=== PATIENT | female | born 1995 | race Caucasian/White ===

== ENCOUNTER 2018-12-08 18:36 | Inpatient (IN) | payer OTHER ==
[2018-12-08 19:00] LABS: ADD MAN DIFF? NO
[2018-12-08] MEDS ORDERED: METHYLERGONOVINE 0.2 MG INJ IM ×2 (19:00→19:30)
[2018-12-08] MEDS ORDERED: BUTORPHANOL 2 MG INJ IV ×2 (19:00→19:30)
[2018-12-08] MEDS ORDERED: OXYTOCIN 30 UNITS/LR 500 ML IV ×4 (19:00→19:30)
[2018-12-08] MEDS ORDERED: LIDOCAINE 1% (MPF) 30 ML INJ INJ (19:00)
[2018-12-08] MEDS ORDERED: MISOPROSTOL 200 MCG TAB PR ×2 (19:00→19:30)
[2018-12-08] MEDS ORDERED: CARBOPROST 250 MCG INJ IM ×2 (19:00→19:30)
[2018-12-08] MEDS ORDERED: IBUPROFEN 600 MG TAB PO (19:00)
[2018-12-08 19:01] LABS: ABNORMAL IP MESSAGE 1; BASOPHIL # 0.1 10^3/ul (0.0-0.1); BASOPHILS % 0.4 % (0.0-2.0); EOSINOPHILS % 0.3 % (0.0-7.0); HEMATOCRIT 35.7 % (37.0-47.0); HEMOGLOBIN 11.8 g/dl (12.0-16.0); LYMPHOCYTES # 3.3 10^3/ul (0.8-2.9); LYMPHOCYTES % 26.6 % (15.0-51.0); MEAN CORPUSCULAR HGB CONC 33.1 g/dl (32.0-37.0); MEAN CORPUSCULAR VOLUME 84.8 fl (82.0-101.0); MEAN PLATELET VOLUME 13.5 fl (7.4-10.4); MONOCYTE # 0.7 10^3/ul (0.3-0.9); MONOCYTES % 5.8 % (0.0-11.0); NEUTROPHIL # 8.3 10^3/ul (1.6-7.5); NEUTROPHILS % 66.6 % (39.0-77.0); PLATELET COUNT 193 10^3/UL (140-415); RED BLOOD COUNT 4.21 10^6/ul (4.20-5.40); RED CELL DISTRIBUTION WIDTH 14.1 % (11.5-14.5)
[2018-12-08 19:01] LABS: WHITE BLOOD COUNT 12.5 10^3/ul (4.8-10.8)
[2018-12-08] MEDS: LACTATED RINGER'S 1,000 ML IV ×3 (19:04→19:42)
[2018-12-08 19:16] LABS: POSITIVE DIFF @See below
[2018-12-08 19:22] LABS: PROTIME 11.2 Sec (11.9-14.9); PT RATIO 0.9
[2018-12-08 19:23] LABS: PARTIAL THROMBOPLASTIN TIME 25.6 Sec (23.0-35.0)
[2018-12-08] MEDS ORDERED: ROPIVACAINE 0.2% 100 ML (19:45)
[2018-12-08 19:56] LABS: HEPATITIS B SURFACE ANTIGEN NEGATIVE (NEGATIVE)
[2018-12-08] MEDS ORDERED: ROPIVACAINE 0.2% 100ML BAG EPI (20:30)
[2018-12-08] MEDS ORDERED: NALOXONE (0.4 MG/ML) INJ IV (20:30)
[2018-12-08] MEDS: MINERAL OIL LIGHT 10 ML VIAL TOP (23:40)
[2018-12-09] MEDS: OXYTOCIN 30 UNITS/LR 500 ML IV ×3 (00:07→04:14)
[2018-12-09] MEDS: LIDOCAINE 1% (MPF) 30 ML INJ INJ (00:10)
[2018-12-09] MEDS ORDERED: OXYCODONE/ASPIRIN (4.88/325) TAB PO (00:30)
[2018-12-09] MEDS ORDERED: METHYLERGONOVINE 0.2 MG INJ IM (00:30)
[2018-12-09] MEDS ORDERED: MISOPROSTOL 200 MCG TAB PR (00:30)
[2018-12-09] MEDS ORDERED: CARBOPROST 250 MCG INJ IM (00:30)
[2018-12-09] MEDS ORDERED: ONDANSETRON 4 MG INJ IV (00:30)
[2018-12-09] MEDS ORDERED: NACL 0.9% 3 ML SYG IV (00:30)
[2018-12-09] MEDS ORDERED: DIPHENHYDRAMINE 25 MG CAP PO (00:30)
[2018-12-09] MEDS ORDERED: OXYTOCIN 30 UNITS/LR 500 ML IV (00:30)
[2018-12-09] MEDS ORDERED: ACETAMINOPHEN 325 MG TAB PO (00:30)
[2018-12-09] MEDS: WITCH HAZEL/GLYCERIN PAD PR (03:08)
[2018-12-09] MEDS: LANOLIN HPA 1 PKT TOP ×2 (03:09→17:44)
[2018-12-09] MEDS: BENZOCAINE 20% 56 ML SPRAY TOP (03:09)
[2018-12-09] MEDS: IBUPROFEN 600 MG TAB PO ×4 (06:12→23:51)
[2018-12-09] MEDS: SENNA/DOCUSATE NA (8.6MG/50MG) TAB PO ×2 (08:47→21:17)
[2018-12-09 16:57] LABS: RAPID PLASMA REAGIN NONREACTIVE (NR)
[2018-12-10] MEDS: IBUPROFEN 600 MG TAB PO ×3 (06:12→17:31)
[2018-12-10 07:15] LABS: ADD MAN DIFF? NO
[2018-12-10 07:18] LABS: BASOPHILS % 0.3 % (0.0-2.0); EOSINOPHILS # 0.1 10^3/ul (0.0-0.5); EOSINOPHILS % 0.7 % (0.0-7.0); HEMATOCRIT 26.7 % (37.0-47.0); HEMOGLOBIN 8.4 g/dl (12.0-16.0); LYMPHOCYTES # 2.8 10^3/ul (0.8-2.9); LYMPHOCYTES % 23.6 % (15.0-51.0); MEAN CORPUSCULAR HEMOGLOBIN 27.5 pg (29.0-33.0); MEAN CORPUSCULAR HGB CONC 31.5 g/dl (32.0-37.0); MEAN CORPUSCULAR VOLUME 87.5 fl (82.0-101.0); MEAN PLATELET VOLUME 12.9 fl (7.4-10.4); MONOCYTE # 0.7 10^3/ul (0.3-0.9); MONOCYTES % 5.7 % (0.0-11.0); NEUTROPHIL # 8.3 10^3/ul (1.6-7.5); NEUTROPHILS % 69.1 % (39.0-77.0); PLATELET COUNT 141 10^3/UL (140-415); RED BLOOD COUNT 3.05 10^6/ul (4.20-5.40); RED CELL DISTRIBUTION WIDTH 14.6 % (11.5-14.5)
[2018-12-10] MEDS: OXYCODONE/ASPIRIN (4.88/325) TAB PO ×2 (08:53→16:01)
[2018-12-10] MEDS: SENNA/DOCUSATE NA (8.6MG/50MG) TAB PO (08:53)
== END 2018-12-10 19:24 | disposition home or self-care (01) | DRG 807 ==
LOC: OBT 18:36 → PP1 12-09 01:39 → L-D 18:40 → OBT 18:41 → L-D 18:41
PROVIDERS: Obstetrics & Gynecology
PROC: 10E0XZZ Delivery of Products of Conception, External Approach (ICD-10-PCS; principal; 2018-12-09)
PROC: 0HQ9XZZ Repair Perineum Skin, External Approach (ICD-10-PCS; 2018-12-09)
DX: O70.0 First degree perineal laceration during delivery (principal); Z37.0 Single live birth; Z3A.39 39 weeks gestation of pregnancy
CPT/HCPCS: 62322; 85025; 85610; 85730; 86592; 86850; 86900; 86901; 87340